=== PATIENT | male | born 1975 ===

== ENCOUNTER 2017-09-22 09:46 | Outpatient (CLI) | payer OTHER ==
[~2017-09-22] VITALS: Ht 182.9 cm; Wt 172.4 kg
[2017-09-22] MEDS ORDERED: FLONASE16 GM NASAL (09:56)
[2017-09-22] MEDS ORDERED: CLARITIN10 MG PO (09:57)
== END 2017-09-22 14:48 | disposition home or self-care (01) ==
LOC: OFIC 805 09:46
DX: J31.0 Chronic rhinitis (principal); H93.13 Tinnitus, bilateral; H90.3 Sensorineural hearing loss, bilateral; E66.8 Other obesity; G47.33 Obstructive sleep apnea (adult) (pediatric)